=== PATIENT | female | born 2000 | race African-American/Black ===

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

== ENCOUNTER 2020-07-19 11:47 | Emergency (ER) | payer MEDICAID ==
[~2020-07-19] VITALS: Ht 175.3 cm; Wt 87.0 kg
[2020-07-19] MEDS ORDERED: SODIUM CHLORIDE 0.9% 1,000 ML IV ONE (13:00)
[2020-07-19] MEDS ORDERED: FAMOTIDINE 20MG/2ML VIAL IV ONE (13:15)
[2020-07-19] MEDS ORDERED: KETOROLAC 15MG/ML VIAL IV ONE (13:15)
[2020-07-19 13:40] LABS: BASOPHILS % 0.5 % (0.0-2.0); EOSINOPHILS % 1.2 % (0.0-5.0); HEMATOCRIT. 42.1 % (36.0-48.0); HEMOGLOBIN. 14.1 g/dL (12.0-16.0); LYMPHOCYTES % 17.4 % (20.0-50.0); MEAN CORPUSCULAR VOLUME 80.6 fL (81.0-99.0); MEAN PLATELET VOLUME 10.1 fl (7.4-10.4); MONOCYTES % 6.2 % (2.0-8.0); NEUTROPHILS % 74.7 % (40.0-76.0); PLATELET 209 x1000/uL (130-400); RED BLOOD CELL COUNT 5.22 mill/uL (4.2-5.4); RED CELL DISTRIBUTION WIDTH 19.1 % (11.6-14.6)
[2020-07-19 13:48] LABS: CHLORIDE 108 mEq/L (98-107)
[2020-07-19 13:49] LABS: INR 1.1; PROTHROMBIN TIME 11.1 sec (9.6-11.0)
[2020-07-19 13:54] LABS: HCG SCREEN NEGATIVE
[2020-07-19] MEDS ORDERED: MORPHINE SULFATE 4 MG/ML CPJ (NOT FOR IM USE) IV NR ×3 (14:15→17:15)
[2020-07-19] MEDS ORDERED: ONDANSETRON HCL 4MG/2ML INJ IV NR (14:15)
[2020-07-19] MEDS ORDERED: CEFTRIAXONE 1 G PREMIX 50 ML IV SCH ×2 (14:30→18:45)
[2020-07-19] MEDS ORDERED: METRONIDAZOLE 500 MG PREMIX 100 ML IV SCH (14:30)
[2020-07-19 15:33] LABS: CLARITY URINE CLEAR (CLEAR); COLOR URINE YELLOW (YELLOW); KETONES URINE 2+ (NEGATIVE); LEUKOCYTE ESTERASE URINE 1+ (NEGATIVE); NITRITE URINE NEGATIVE (NEGATIVE); OCCULT BLOOD URINE 3+ (NEGATIVE); PROTEIN URINE TRACE (NEGATIVE); SPECIFIC GRAVITY URINE 1.023 (1.005-1.030); UROBILINOGEN URINE 0.2 E.U./dL (0.2-1.0)
[2020-07-19] MEDS ORDERED: ONDANSETRON 4MG ODT PO NR (18:30)
[2020-07-19] MEDS ORDERED: KETOROLAC 15MG/ML VIAL IV PRN (18:45)
[2020-07-19] MEDS ORDERED: CLONIDINE 0.1MG TABLET PO PRN (18:45)
[2020-07-19] MEDS ORDERED: GUAIFENESIN 200MG/10ML SUGAR FREE UDC PO PRN (18:45)
[2020-07-19] MEDS ORDERED: LORAZEPAM 2MG/ML CPJ IV PRN (18:45)
[2020-07-19] MEDS ORDERED: ONDANSETRON HCL 4MG/2ML INJ IV PRN (18:45)
[2020-07-19] MEDS ORDERED: NA PHOS,M-B/NA PHOS,DI-BA ENEMA 118ML PR PRN (18:45)
[2020-07-19] MEDS ORDERED: NITROGLYCERIN 0.4MG TABLET SL SL PRN (18:45)
[2020-07-19] MEDS ORDERED: DOCUSATE SODIUM 100MG CAPSULE PO PRN (18:45)
[2020-07-19] MEDS ORDERED: SODIUM CHLORIDE 0.9% 1,000 ML IV SCH (18:45)
[2020-07-19] MEDS ORDERED: MAGNESIUM/ALUMINUM HYDROXIDE/SIMETHICONE 30ML UDC PO PRN (18:45)
[2020-07-19] MEDS ORDERED: ACETAMINOPHEN 325MG TABLET PO PRN ×2 (18:45)
[2020-07-19] MEDS ORDERED: AZITHROMYCIN 500 MG in DEXT 5% WATER 250 ML IV SCH (19:00)
[2020-07-19 20:37] VITALS: BP 132/84
[2020-07-19] MEDS ORDERED: ZOLPIDEM TARTRATE 5MG TABLET PO PRN (21:00)
[2020-07-19] MEDS ORDERED: SUCRALFATE 1 G/10 ML UDC PO SCH (21:00)
[2020-07-20] MEDS ORDERED: PANTOPRAZOLE SODIUM 40 MG/VIAL IV SCH (09:00)
[2020-07-20] MEDS ORDERED: CEFTRIAXONE 1,000 MG in DEXTROSE 5% WATER 50 ML IV SCH (14:00)
== END 2020-07-19 20:47 | disposition left against medical advice (07) ==
LOC: ER 11:47 → CANRESERV 17:55 → ENRESERV 17:55 → ER 20:47 → CANBEDREQ 21:45
DX: K52.9 Noninfective gastroenteritis and colitis, unspecified (principal); K29.70 Gastritis, unspecified, without bleeding; F12.188 Cannabis abuse with other cannabis-induced disorder; N39.0 Urinary tract infection, site not specified; R79.82 Elevated C-reactive protein (CRP)
CPT/HCPCS: 36415; 71045; 74176; 76700; 80053; 81003; 81025; 83036; 83605; 83690; 84145; 84703; 85025; 85379; 85610; 86140; 96361; 96365; 96366; 96368; 96375; 96376; 99285; J0696; J1885; J2270; J2405; J3490; J7030; Q0162; J0456; J7060